=== PATIENT | male | born 1945 | race Caucasian/White ===

== ENCOUNTER 2018-04-16 10:27 | Emergency (ER) | payer OTHER ==
--- NOTE | 2018-04-16 12:01 | EDPHY ---
H & P Time Seen by Provider: 04/16/18 11:28 HPI/ROS: CHIEF COMPLAINT: Tongue swelling HISTORY OF PRESENT ILLNESS: Patient is a 72-year-old male who presents emergency department with tongue swelling. Patient has had flu-like symptoms. On was seen by his primary care physician diagnosed with influenza. He was started on Tamiflu and albuterol inhaler. The patient states that yesterday he started to developed tongue swelling. This morning his treated him with Benadryl. They called the primary care physician and he was sent to the emergency department. Since taking the Benadryl his tongue swelling has improved. Patient states he is not having significant respiratory distress or shortness of breath. His cough is controlled. His body aches are better. He has had no nausea or vomiting. He denies chest pain. He has no rash. REVIEW OF SYSTEMS: 10 systems were reveiwed and are negative with the exception of the elements mentioned in the history of present illness. Past Medical/Surgical History: Includes influenza, prostate cancer Social history: Patient does not smoke Smoking Status: Former smoker Physical Exam: 36.6, 140/85, 72, 19, 94% on room air GENERAL: Well-appearing, in no acute distress, alert. HEENT: Eyes normal to inspection, normal pharynx, no signs of dehydration. No tongue swelling. Uvula is midline. No abnormality noted NECK: Normal, supple. No stridor RESPIRATORY: No respiratory distress. Clear to auscultation bilaterally, no rales, rhonchi or wheezing. Normal CVS: Regular rate and rhythm, no rubs, murmurs, or gallops. ABDOMEN: Soft, nontender, nondistended, no organomegaly. BACK: Normal to inspection, no CVA tenderness. SKIN: Normal color, no rash, warm, dry. No pallor. EXTREMITIES: No pedal edema, no calf tenderness, no Homans sign or cords, no joint swelling. NEURO/PSYCH: Alert and oriented, normal mood and affect, normal motor sensory exam. No obvious cranial nerve deficit. Constitutional: Initial Vital Signs Temperature (C) 36.6 C 04/16/18 10:30 Heart Rate 72 04/16/18 10:30 Respiratory Rate 19 04/16/18 10:30 Blood Pressure 148/85 H 04/16/18 10:30 O2 Sat (%) 94 04/16/18 10:30 O2 Delivery Mode Room Air Allergies/Adverse Reactions: doxycycline Allergy (Verified 04/16/18 10:30) Home Medications: Medication Instructions Recorded Albuterol 04/16/18 Atorvastatin Calcium 04/16/18 Benadryl 04/16/18 Tamiflu 04/16/18 Medical Decision Making ED Course/Re-evaluation: The patient appears well on exam. He has no complaints at this time. He states his tongue swelling is improved after taking Benadryl. I instructed the patient to continue to take Benadryl every 6 hr. I did not want start the patient on steroids as he is flu positive. I told the patient to discontinue Tamiflu and albuterol. His lung sounds are clear. He has no respiratory distress. He has not used albuterol today. Patient was given warnings prior to leaving. He will return with worsening symptoms. Differential Diagnosis: My differential includes but is not limited to allergic reaction, reaction medication, influenza, viral illness, anaphylaxis Departure - Departure Disposition: Home, Routine, Self-Care Clinical Impression: Allergic reaction Qualifiers: Encounter type: initial encounter Qualified Code(s): T78.40XA - Allergy, unspecified, initial encounter Condition: Good Instructions: General Allergic Reaction (ED) Additional Instructions: The discontinue your albuterol and your Tamiflu. Take Benadryl every 6 hr as needed. Return with increasing tongue swelling, shortness of breath, rash or any other concerns. Referrals: Arlene Treviño MD [Primary Care Provider] - 2-3 days, call for appt.
[2018-04-16 12:13] VITALS: BP 106/74
== END 2018-04-16 12:13 | disposition home or self-care (01) ==
DX: J11.1 Influenza due to unidentified influenza virus with other respiratory manifestations (principal); T78.40XA Allergy, unspecified, initial encounter; C61 Malignant neoplasm of prostate

== ENCOUNTER → 2018-05-12 | Outpatient (CLI) | payer OTHER | LOC: FIMAGING 09:13 | PROVIDERS: ATTEND Physician Assistant | DX: R10.13 Epigastric pain (principal) ==

== ENCOUNTER → 2018-07-07 | Outpatient (CLI) | payer OTHER | LOC: FIMAGING 14:33 | PROVIDERS: ATTEND Nurse Practitioner Adult Health | DX: R05 Cough (principal); R50.9 Fever, unspecified; J84.9 Interstitial pulmonary disease, unspecified ==